=== PATIENT | female | born 1930 | race African-American/Black ===

== ENCOUNTER 2017-05-24 15:09 | Inpatient (IN) | payer MEDICARE, OTHER ==
[~2017-05-24] VITALS: Ht 175.3 cm; Wt 69.9 kg
[2017-05-24 16:54] LABS: CHLORIDE 103 mEq/L (98-107)
[2017-05-24 16:55] LABS: BASOPHILS % 0.7 % (0.0-2.0); EOSINOPHILS % 1.9 % (0.0-5.0); HEMATOCRIT. 35.1 % (36.0-48.0); HEMOGLOBIN. 11.5 g/dL (12.0-16.0); LYMPHOCYTES % 22.2 % (20.0-50.0); MEAN CORPUSCULAR HEMOGLOBIN 28.5 pg (28.0-32.0); MEAN CORPUSCULAR VOLUME 86.7 fL (81.0-99.0); MEAN PLATELET VOLUME 7.7 fl (7.4-10.4); MONOCYTES % 9.1 % (2.0-8.0); NEUTROPHILS % 66.1 % (40.0-76.0); PLATELET 193 x1000/uL (130-400); RED BLOOD CELL COUNT 4.05 mill/uL (4.2-5.4); RED CELL DISTRIBUTION WIDTH 14.2 % (11.6-14.6)
[2017-05-24 16:57] LABS: PARTIAL THROMBOPLASTIN TIME 25.7 sec (23.4-31.0); PROTHROMBIN TIME 10.3 sec (9.4-11.6)
[2017-05-24 16:59] LABS: CARBON DIOXIDE 28 mEq/L (21-32)
[2017-05-24 17:04] LABS: TROPONIN I < 0.02 ng/mL (0.00-0.04)
[2017-05-24] MEDS ORDERED: MECLIZINE 25MG TABLET PO ONE (17:30)
[2017-05-24 22:00] VITALS: BP_SYST 148; BP_SYST 177; BP_DIAS 63; BP_DIAS 87
[2017-05-25] VITALS (13 sets, daily range): BP systolic 104–163; BP diastolic 51–86
[2017-05-25] MEDS ORDERED: ASPI-1159 PO (00:27)
[2017-05-25] MEDS ORDERED: HYDR-523 PO (00:27)
[2017-05-25] MEDS ORDERED: LEVO75TA PO (00:27)
[2017-05-25] MEDS ORDERED: ZET10 PO (00:27)
[2017-05-25] MEDS ORDERED: GABA-290 PO (00:27)
[2017-05-25] MEDS ORDERED: XALAO EACHEYE (00:27)
[2017-05-25] MEDS ORDERED: PROT40 PO (00:27)
[2017-05-25] MEDS ORDERED: ENAL20TA PO (00:27)
[2017-05-25] MEDS ORDERED: CHLO25TA27 PO (00:27)
[2017-05-25] MEDS ORDERED: NIFE60TA64 PO (00:27)
[2017-05-25] MEDS: HYDROCODONE/ACETAMINOPHEN 5/325MG TABLET PO PRN ×2 (01:31→21:32)
[2017-05-25] MEDS: MECLIZINE 25MG TABLET PO SCH ×4 (02:19→21:32)
[2017-05-25] MEDS ORDERED: DEXTROSE 50% WATER 50ML SYRINGE IV PRN (05:45)
[2017-05-25] MEDS: INSULIN LISPRO 100 UNITS/ML SUBCUT SCH ×4 (08:00→21:35)
[2017-05-25] MEDS: BLOOD SUGAR DIAGNOSTIC STRIP TEST SCH ×4 (08:21→21:33)
[2017-05-25] MEDS ORDERED: MEDICATION NOT ON FORMULARY EA (Gabapentin 1 TAB) PO SCH (09:00)
[2017-05-25] MEDS ORDERED: MEDICATION NOT ON FORMULARY EA (Enalapril Maleate 1 TAB) PO SCH (09:00)
[2017-05-25] MEDS: LEVOTHYROXINE SODIUM 75MCG TABLET PO SCH (09:13)
[2017-05-25] MEDS: ASPIRIN 81MG EC TABLET PO SCH (09:13)
[2017-05-25] MEDS: PANTOPRAZOLE 40MG DR TABLET PO SCH ×2 (09:13→18:38)
[2017-05-25] MEDS: NIFEDIPINE XL 60MG TAB PO SCH ×2 (09:13→17:00)
[2017-05-25] MEDS: GABAPENTIN 300MG CAPSULE PO SCH ×3 (09:14→18:38)
[2017-05-25] MEDS: EZETIMIBE 10MG TABLET PO SCH (09:14)
[2017-05-25] MEDS: CHLORTHALIDONE 25MG TABLET PO SCH (09:14)
[2017-05-25] MEDS: ENALAPRIL 10MG TABLET PO SCH (09:14)
[2017-05-25] MEDS ORDERED: LATANOPROST 0.005% OPHTH DROPS 2.5ML EACHEYE SCH (17:00)
[2017-05-26] VITALS (14 sets, daily range): BP systolic 98–150; BP diastolic 50–73
[2017-05-26] MEDS: LEVOTHYROXINE SODIUM 75MCG TABLET PO SCH (06:54)
[2017-05-26] MEDS: PANTOPRAZOLE 40MG DR TABLET PO SCH (06:54)
[2017-05-26] MEDS: MECLIZINE 25MG TABLET PO SCH ×2 (06:54→13:32)
[2017-05-26] MEDS: BLOOD SUGAR DIAGNOSTIC STRIP TEST SCH ×3 (07:28→17:34)
[2017-05-26] MEDS: INSULIN LISPRO 100 UNITS/ML SUBCUT SCH ×3 (07:29→17:34)
[2017-05-26] MEDS: NIFEDIPINE XL 60MG TAB PO SCH ×2 (09:07→17:00)
[2017-05-26] MEDS: CHLORTHALIDONE 25MG TABLET PO SCH (09:07)
[2017-05-26] MEDS: ENALAPRIL 10MG TABLET PO SCH (09:07)
[2017-05-26] MEDS: GABAPENTIN 300MG CAPSULE PO SCH ×2 (09:08→13:32)
[2017-05-26] MEDS: EZETIMIBE 10MG TABLET PO SCH (09:08)
[2017-05-26] MEDS: ASPIRIN 81MG EC TABLET PO SCH (09:08)
[2017-05-26] MEDS ORDERED: GADOBENATE DIMEGLUMINE 529 MG/ML 10ML IV ONE (11:13)
[2017-05-27] MEDS ORDERED: FAMOTIDINE 20MG TABLET PO SCH (09:00)
== END 2017-05-26 17:40 | disposition home or self-care (01) | DRG 149 ==
LOC: ER 16:31 → 5EST 19:07 → ENRESERV 19:59 → EDBEDREQ 20:52
PROVIDERS: ADMIT Internal Medicine; ATTEND Internal Medicine
DX: H81.10 Benign paroxysmal vertigo, unspecified ear (principal); E11.40 Type 2 diabetes mellitus with diabetic neuropathy, unspecified; I10 Essential (primary) hypertension; E03.9 Hypothyroidism, unspecified; E78.00 Pure hypercholesterolemia, unspecified; F41.9 Anxiety disorder, unspecified; H40.9 Unspecified glaucoma; G89.29 Other chronic pain; M54.9 Dorsalgia, unspecified; K21.9 Gastro-esophageal reflux disease without esophagitis; M13.0 Polyarthritis, unspecified; Z85.3 Personal history of malignant neoplasm of breast; Z92.21 Personal history of antineoplastic chemotherapy; Z88.0 Allergy status to penicillin; G93.9 Disorder of brain, unspecified
CPT/HCPCS: 36415; 70450; 70553; 71010; 80053; 82962; 84484; 85025; 85610; 85730; 93005; 97163; 99285; A9577; J1815; J8597

== ENCOUNTER 2017-08-10 10:02 | Emergency (ER) | payer MEDICARE, OTHER ==
[~2017-08-10] VITALS: Ht 175.3 cm; Wt 74.0 kg
[~2017-08-10 10:02] MED LIST: ASPI-1159 PO; CHLO25TA27 PO; ENAL20TA PO; GABA-290 PO; HYDR-523 PO; LEVO75TA PO; NIFE60TA64 PO; PROT40 PO; XALAO EACHEYE; ZET10 PO
[2017-08-10] MEDS ORDERED: NIAC500T2 PO (10:28)
[2017-08-10] MEDS ORDERED: INSU100I7 SQ (10:28)
[2017-08-10] MEDS ORDERED: OMEG100016 PO (10:28)
[2017-08-10] MEDS ORDERED: POTA10TA15 PO (10:28)
[2017-08-10] MEDS ORDERED: MAGN400C PO (10:28)
[2017-08-10 10:49] VITALS: BP 145/70
== END 2017-08-10 11:20 | disposition home or self-care (01) ==
LOC: ER 10:20
DX: R53.1 Weakness (principal); K08.199 Complete loss of teeth due to other specified cause, unspecified class; E11.9 Type 2 diabetes mellitus without complications; I10 Essential (primary) hypertension; Z85.3 Personal history of malignant neoplasm of breast; Z79.4 Long term (current) use of insulin; Z79.82 Long term (current) use of aspirin; Z88.0 Allergy status to penicillin; Z90.12 Acquired absence of left breast and nipple
CPT/HCPCS: 82962; 99282

== ENCOUNTER 2017-12-18 18:31 | Inpatient (IN) | payer MEDICARE, OTHER ==
[~2017-12-18] VITALS: Ht 175.3 cm; Wt 75.5 kg
[2017-12-18 18:10] VITALS: BP 124/46
[~2017-12-18 18:31] MED LIST changes: +ACYC200C PO; +CYCL30DR OP; +GLIM1TAB2 PO; -HYDR-523 PO; +INSU100I7 SQ; +INSU300I SQ; +LETR2.5T6 PO; +MAGN400C PO; +NIAC500T2 PO; +OMEG100016 PO; +PROP10DR2 OP
[2017-12-18 18:52] VITALS: BP 124/46
[2017-12-18] MEDS ORDERED: ACETAMINOPHEN 325MG TABLET PO PRN (19:30)
[2017-12-18] MEDS ORDERED: ONDANSETRON 4MG ODT PO PRN (19:30)
[2017-12-18] MEDS ORDERED: CLONIDINE 0.2MG TABLET PO PRN (19:30)
[2017-12-18] MEDS ORDERED: CLONIDINE 0.1MG TABLET PO PRN (19:30)
[2017-12-18] MEDS ORDERED: IPRATROPIUM/ALBUTEROL 0.5-3(2.5)MG/3ML NEB HHN PRN (19:30)
[2017-12-18] MEDS ORDERED: DOCUSATE SODIUM 100MG CAPSULE PO PRN (19:30)
[2017-12-18] MEDS ORDERED: DIPHENHYDRAMINE 25MG CAPSULE PO PRN (19:30)
[2017-12-18] MEDS ORDERED: IBUPROFEN 200MG TABLET PO PRN (19:45)
[2017-12-18] MEDS ORDERED: GUAIFENESIN 200MG/10ML SUGAR FREE UDC PO PRN (19:45)
[2017-12-18] MEDS ORDERED: TRAMADOL 50MG TABLET PO PRN (19:45)
[2017-12-18] MEDS ORDERED: ZOLPIDEM TARTRATE 5MG TABLET PO PRN (19:45)
[2017-12-18] MEDS ORDERED: NA PHOS,M-B/NA PHOS,DI-BA ENEMA 118ML PR PRN (19:45)
[2017-12-18] MEDS ORDERED: MAGNESIUM/ALUMINUM HYDROXIDE/SIMETHICONE 30ML UDC PO PRN (19:45)
[2017-12-18 20:00] VITALS: BP 132/61
[2017-12-18] MEDS ORDERED: DEXTROSE 50% WATER 50ML SYRINGE IV PRN (20:00)
[2017-12-18] MEDS ORDERED: NITROGLYCERIN 0.4MG TABLET SL SL PRN (20:15)
[2017-12-18] MEDS: BLOOD SUGAR DIAGNOSTIC STRIP TEST SCH (21:00)
[2017-12-18] MEDS ORDERED: CLONIDINE 0.2MG TABLET PO SCH (22:00)
[2017-12-18] MEDS: ATORVASTATIN CALCIUM 20MG TABLET PO SCH (22:29)
[2017-12-18] MEDS: LATANOPROST 0.005% OPHTH DROPS 2.5ML BOTHEYE SCH (22:30)
[2017-12-18] MEDS: METOPROLOL TARTRATE 25MG TABLET PO SCH (22:30)
[2017-12-18] MEDS: LISINOPRIL 20MG TABLET PO SCH (22:30)
[2017-12-18] MEDS: INSULIN LISPRO 100 UNITS/ML SUBCUT SCH (22:32)
[2017-12-18 23:00] VITALS: BP 126/64
[2017-12-19] MEDS: BLOOD SUGAR DIAGNOSTIC STRIP TEST SCH ×4 (06:15→21:47)
[2017-12-19] MEDS: INSULIN LISPRO 100 UNITS/ML SUBCUT SCH ×4 (06:15→22:00)
[2017-12-19] MEDS: LEVOTHYROXINE SODIUM 125MCG TABLET PO SCH (06:16)
[2017-12-19 06:56] LABS: CHLORIDE 93 mEq/L (98-107)
[2017-12-19 07:09] LABS: PREALBUMIN 22.1 mg/dL (20.0-40.0)
[2017-12-19 07:24] LABS: BASOPHILS % 0.8 % (0.0-2.0); HEMATOCRIT. 30.8 % (36.0-48.0); HEMOGLOBIN. 10.6 g/dL (12.0-16.0); LYMPHOCYTES % 18.5 % (20.0-50.0); MEAN CORPUSCULAR HEMOGLOBIN 29.3 pg (28.0-32.0); MEAN CORPUSCULAR VOLUME 85.3 fL (81.0-99.0); MEAN PLATELET VOLUME 6.9 fl (7.4-10.4); MONOCYTES % 12.3 % (2.0-8.0); NEUTROPHILS % 67.4 % (40.0-76.0); PLATELET 217 x1000/uL (130-400); RED BLOOD CELL COUNT 3.61 mill/uL (4.2-5.4); RED CELL DISTRIBUTION WIDTH 14.1 % (11.6-14.6)
[2017-12-19 08:00] VITALS: BP 127/50
[2017-12-19] MEDS: POTASSIUM-SODIUM PHOSPHATE POWDER PACKET PO SCH ×2 (08:39→17:55)
[2017-12-19] MEDS: POLYVINYL ALCOHOL OPHTH DROPS 15ML BOTHEYE SCH ×2 (08:39→17:56)
[2017-12-19] MEDS: LETROZOLE 2.5MG TABLET PO SCH (08:39)
[2017-12-19] MEDS: LISINOPRIL 20MG TABLET PO SCH ×2 (08:40→21:00)
[2017-12-19] MEDS: SODIUM CHLORIDE 1000MG TABLET PO SCH ×2 (08:40→17:55)
[2017-12-19] MEDS: ASPIRIN 325MG EC TABLET PO SCH (08:40)
[2017-12-19] MEDS: METOPROLOL TARTRATE 25MG TABLET PO SCH ×2 (08:41→21:00)
[2017-12-19] MEDS ORDERED: GABAPENTIN 300MG CAPSULE PO SCH (10:00)
[2017-12-19] MEDS: LEVOFLOXACIN 500MG TABLET PO SCH (11:33)
[2017-12-19] MEDS: GABAPENTIN 300MG CAPSULE PO SCH ×2 (15:42→21:48)
[2017-12-19 17:50] VITALS: BP 175/64
[2017-12-19 18:01] LABS: CLARITY URINE CLEAR (CLEAR); COLOR URINE YELLOW (YELLOW); KETONES URINE NEGATIVE (NEGATIVE); LEUKOCYTE ESTERASE URINE 1+ (NEGATIVE); NITRITE URINE NEGATIVE (NEGATIVE); OCCULT BLOOD URINE NEGATIVE (NEGATIVE); PROTEIN URINE NEGATIVE (NEGATIVE); SPECIFIC GRAVITY URINE 1.026 (1.005-1.030); UROBILINOGEN URINE 0.2 E.U./dL (0.2-1.0)
[2017-12-19 20:00] VITALS: BP 128/58
[2017-12-19] MEDS: LATANOPROST 0.005% OPHTH DROPS 2.5ML BOTHEYE SCH (21:47)
[2017-12-19] MEDS: ATORVASTATIN CALCIUM 20MG TABLET PO SCH (21:48)
[2017-12-20] VITALS: BP 120/66
[2017-12-20] MEDS: LEVOTHYROXINE SODIUM 125MCG TABLET PO SCH (06:39)
[2017-12-20] MEDS: BLOOD SUGAR DIAGNOSTIC STRIP TEST SCH ×4 (06:39→21:57)
[2017-12-20] MEDS: GABAPENTIN 300MG CAPSULE PO SCH ×3 (06:39→21:56)
[2017-12-20] MEDS: INSULIN LISPRO 100 UNITS/ML SUBCUT SCH ×4 (06:43→22:04)
[2017-12-20 06:48] LABS: BASOPHILS % 0.8 % (0.0-2.0); EOSINOPHILS % 1.4 % (0.0-5.0); HEMATOCRIT. 28.6 % (36.0-48.0); HEMOGLOBIN. 9.8 g/dL (12.0-16.0); LYMPHOCYTES % 28.4 % (20.0-50.0); MEAN CORPUSCULAR HEMOGLOBIN 29.4 pg (28.0-32.0); MEAN CORPUSCULAR VOLUME 85.9 fL (81.0-99.0); MEAN PLATELET VOLUME 6.8 fl (7.4-10.4); MONOCYTES % 12.7 % (2.0-8.0); NEUTROPHILS % 56.7 % (40.0-76.0); PLATELET 187 x1000/uL (130-400); RED BLOOD CELL COUNT 3.33 mill/uL (4.2-5.4); RED CELL DISTRIBUTION WIDTH 14.4 % (11.6-14.6)
[2017-12-20 08:00] VITALS: BP 155/61
[2017-12-20 08:10] LABS: CHLORIDE 96 mEq/L (98-107)
[2017-12-20] MEDS: ASPIRIN 325MG EC TABLET PO SCH (09:34)
[2017-12-20] MEDS: SODIUM CHLORIDE 1000MG TABLET PO SCH ×2 (09:37→16:26)
[2017-12-20] MEDS: LISINOPRIL 20MG TABLET PO SCH ×2 (09:37→21:56)
[2017-12-20] MEDS: METOPROLOL TARTRATE 25MG TABLET PO SCH ×2 (09:37→21:00)
[2017-12-20] MEDS: POTASSIUM-SODIUM PHOSPHATE POWDER PACKET PO SCH ×2 (09:38→16:26)
[2017-12-20] MEDS: LETROZOLE 2.5MG TABLET PO SCH (09:38)
[2017-12-20] MEDS: POLYVINYL ALCOHOL OPHTH DROPS 15ML BOTHEYE SCH ×2 (09:42→16:26)
[2017-12-20] MEDS ORDERED: LACTULOSE 20G/30ML UDC PO PRN (12:30)
[2017-12-20] MEDS ORDERED: LACTULOSE 20G/30ML UDC PO STA (13:06)
[2017-12-20] MEDS: LACTULOSE 20G/30ML UDC PO SCH ×3 (13:30→21:00)
[2017-12-20] MEDS: DOCUSATE SODIUM 100MG CAPSULE PO SCH (16:26)
[2017-12-20 20:00] VITALS: BP 159/53
[2017-12-20] MEDS: POLYETHYLENE GLYCOL 3350 (17GM) 1 DOSE PACK PO SCH (21:00)
[2017-12-20] MEDS: LATANOPROST 0.005% OPHTH DROPS 2.5ML BOTHEYE SCH (21:56)
[2017-12-20] MEDS: ATORVASTATIN CALCIUM 20MG TABLET PO SCH (21:57)
[2017-12-21] MEDS: GABAPENTIN 300MG CAPSULE PO SCH ×3 (06:31→21:22)
[2017-12-21] MEDS: LEVOTHYROXINE SODIUM 125MCG TABLET PO SCH (06:31)
[2017-12-21] MEDS: BLOOD SUGAR DIAGNOSTIC STRIP TEST SCH ×4 (06:35→21:23)
[2017-12-21] MEDS ORDERED: LEVOTHYROXINE SODIUM 150MCG TABLET PO SCH (07:00)
[2017-12-21 07:39] LABS: BASOPHILS % 0.9 % (0.0-2.0); HEMATOCRIT. 30.8 % (36.0-48.0); HEMOGLOBIN. 10.4 g/dL (12.0-16.0); LYMPHOCYTES % 29.2 % (20.0-50.0); MEAN CORPUSCULAR HEMOGLOBIN 29.3 pg (28.0-32.0); MEAN PLATELET VOLUME 7.3 fl (7.4-10.4); MONOCYTES % 10.2 % (2.0-8.0); NEUTROPHILS % 57.7 % (40.0-76.0); PLATELET 189 x1000/uL (130-400); RED BLOOD CELL COUNT 3.54 mill/uL (4.2-5.4); RED CELL DISTRIBUTION WIDTH 14.5 % (11.6-14.6)
[2017-12-21 07:47] LABS: CHLORIDE 100 mEq/L (98-107)
[2017-12-21] MEDS: INSULIN LISPRO 100 UNITS/ML SUBCUT SCH ×4 (07:52→21:35)
[2017-12-21 07:56] LABS: PHOSPHORUS 3.5 mg/dL (2.5-4.9)
[2017-12-21 08:00] VITALS: BP 152/56
[2017-12-21 08:09] LABS: TOTAL IRON BINDING CAPACITY 293 ug/dL (250-450)
[2017-12-21] MEDS: ACETAMINOPHEN 500MG TABLET PO SCH ×4 (08:20→21:22)
[2017-12-21] MEDS: SODIUM CHLORIDE 1000MG TABLET PO SCH (08:21)
[2017-12-21] MEDS: POTASSIUM-SODIUM PHOSPHATE POWDER PACKET PO SCH ×2 (08:21→16:12)
[2017-12-21] MEDS: LISINOPRIL 20MG TABLET PO SCH ×2 (08:21→21:00)
[2017-12-21] MEDS: METOPROLOL TARTRATE 25MG TABLET PO SCH ×2 (08:21→21:00)
[2017-12-21] MEDS: ASPIRIN 325MG EC TABLET PO SCH (08:22)
[2017-12-21] MEDS: DOCUSATE SODIUM 100MG CAPSULE PO SCH ×2 (08:22→16:12)
[2017-12-21] MEDS: LETROZOLE 2.5MG TABLET PO SCH (08:22)
[2017-12-21] MEDS: POLYVINYL ALCOHOL OPHTH DROPS 15ML BOTHEYE SCH ×2 (08:23→16:12)
[2017-12-21] MEDS: LEVOFLOXACIN 500MG TABLET PO SCH (10:40)
[2017-12-21 12:39] LABS: FOLIC ACID (FOLATE) SERUM 13.2 ng/mL (>5.38)
[2017-12-21 20:00] VITALS: BP 142/38
[2017-12-21] MEDS: LATANOPROST 0.005% OPHTH DROPS 2.5ML BOTHEYE SCH (21:22)
[2017-12-21] MEDS: ATORVASTATIN CALCIUM 20MG TABLET PO SCH ×2 (21:22→21:36)
[2017-12-21] MEDS: POLYETHYLENE GLYCOL 3350 (17GM) 1 DOSE PACK PO SCH (21:41)
[2017-12-22] MEDS: ACETAMINOPHEN 500MG TABLET PO SCH ×4 (02:00→21:29)
[2017-12-22] MEDS: BLOOD SUGAR DIAGNOSTIC STRIP TEST SCH ×4 (06:15→21:34)
[2017-12-22] MEDS: INSULIN LISPRO 100 UNITS/ML SUBCUT SCH ×4 (06:17→21:00)
[2017-12-22] MEDS: LEVOTHYROXINE SODIUM 125MCG TABLET PO SCH (06:30)
[2017-12-22] MEDS: GABAPENTIN 300MG CAPSULE PO SCH ×3 (06:30→21:27)
[2017-12-22 06:42] LABS: HEMATOCRIT. 31.9 % (36.0-48.0); HEMOGLOBIN. 10.9 g/dL (12.0-16.0); MEAN CORPUSCULAR HEMOGLOBIN 29.5 pg (28.0-32.0); MEAN CORPUSCULAR VOLUME 86.3 fL (81.0-99.0); RED BLOOD CELL COUNT 3.69 mill/uL (4.2-5.4); RED CELL DISTRIBUTION WIDTH 14.5 % (11.6-14.6)
[2017-12-22 07:25] LABS: CHLORIDE 102 mEq/L (98-107)
[2017-12-22 07:34] LABS: PHOSPHORUS 3.7 mg/dL (2.5-4.9)
[2017-12-22 08:00] VITALS: BP 169/63
[2017-12-22] MEDS: ASPIRIN 325MG EC TABLET PO SCH (08:50)
[2017-12-22] MEDS: DOCUSATE SODIUM 100MG CAPSULE PO SCH ×2 (08:50→17:54)
[2017-12-22 08:51] LABS: PLATELET ESTIMATE NORMAL
[2017-12-22] MEDS: POTASSIUM-SODIUM PHOSPHATE POWDER PACKET PO SCH ×2 (08:51→17:54)
[2017-12-22] MEDS: POLYVINYL ALCOHOL OPHTH DROPS 15ML BOTHEYE SCH ×2 (08:51→17:55)
[2017-12-22 08:52] LABS: MEAN PLATELET VOLUME 7.9 fl (7.4-10.4); PLATELET 200 x1000/uL (130-400)
[2017-12-22] MEDS: LISINOPRIL 20MG TABLET PO SCH ×2 (08:52→21:00)
[2017-12-22] MEDS: METOPROLOL TARTRATE 25MG TABLET PO SCH ×2 (08:52→21:33)
[2017-12-22] MEDS: LETROZOLE 2.5MG TABLET PO SCH (08:52)
[2017-12-22 20:00] VITALS: BP 134/47
[2017-12-22] MEDS: POLYETHYLENE GLYCOL 3350 (17GM) 1 DOSE PACK PO SCH (21:00)
[2017-12-22] MEDS: ATORVASTATIN CALCIUM 20MG TABLET PO SCH (21:27)
[2017-12-22] MEDS: LATANOPROST 0.005% OPHTH DROPS 2.5ML BOTHEYE SCH (21:29)
[2017-12-23] MEDS: ACETAMINOPHEN 500MG TABLET PO SCH ×4 (03:47→20:15)
[2017-12-23] MEDS: GABAPENTIN 300MG CAPSULE PO SCH ×3 (06:32→22:23)
[2017-12-23] MEDS: LEVOTHYROXINE SODIUM 125MCG TABLET PO SCH (06:32)
[2017-12-23] MEDS: BLOOD SUGAR DIAGNOSTIC STRIP TEST SCH ×4 (06:32→20:49)
[2017-12-23] MEDS: INSULIN LISPRO 100 UNITS/ML SUBCUT SCH ×4 (06:35→20:51)
[2017-12-23] MEDS: LISINOPRIL 20MG TABLET PO SCH ×2 (08:08→20:37)
[2017-12-23] MEDS: DOCUSATE SODIUM 100MG CAPSULE PO SCH ×2 (08:08→16:50)
[2017-12-23] MEDS: ASPIRIN 325MG EC TABLET PO SCH (08:09)
[2017-12-23] MEDS: METOPROLOL TARTRATE 25MG TABLET PO SCH ×2 (08:09→20:36)
[2017-12-23] MEDS: LETROZOLE 2.5MG TABLET PO SCH (08:10)
[2017-12-23] MEDS: POTASSIUM-SODIUM PHOSPHATE POWDER PACKET PO SCH ×2 (08:10→16:50)
[2017-12-23] MEDS: POLYVINYL ALCOHOL OPHTH DROPS 15ML BOTHEYE SCH ×2 (08:11→16:50)
[2017-12-23 08:12] VITALS: BP 153/54
[2017-12-23] MEDS: LEVOFLOXACIN 500MG TABLET PO SCH (11:50)
[2017-12-23 20:00] VITALS: BP 123/56
[2017-12-23] MEDS: ATORVASTATIN CALCIUM 20MG TABLET PO SCH (20:14)
[2017-12-23] MEDS: LATANOPROST 0.005% OPHTH DROPS 2.5ML BOTHEYE SCH (20:14)
[2017-12-23] MEDS: POLYETHYLENE GLYCOL 3350 (17GM) 1 DOSE PACK PO SCH (20:14)
[2017-12-23] MEDS ORDERED: TRAMADOL 50MG TABLET PO PRN (20:30)
[2017-12-23] MEDS ORDERED: ZOLPIDEM TARTRATE 5MG TABLET PO PRN (20:30)
[2017-12-24] MEDS: ACETAMINOPHEN 500MG TABLET PO SCH ×2 (02:00→08:49)
[2017-12-24] MEDS: BLOOD SUGAR DIAGNOSTIC STRIP TEST SCH ×4 (05:35→21:43)
[2017-12-24] MEDS: INSULIN LISPRO 100 UNITS/ML SUBCUT SCH ×4 (05:36→21:53)
[2017-12-24] MEDS: GABAPENTIN 300MG CAPSULE PO SCH ×3 (05:37→16:51)
[2017-12-24] MEDS: LEVOTHYROXINE SODIUM 125MCG TABLET PO SCH (05:37)
[2017-12-24 08:00] VITALS: BP 152/58
[2017-12-24] MEDS: ASPIRIN 325MG EC TABLET PO SCH (08:49)
[2017-12-24] MEDS: DOCUSATE SODIUM 100MG CAPSULE PO SCH ×2 (08:49→16:51)
[2017-12-24] MEDS: LISINOPRIL 20MG TABLET PO SCH ×2 (08:49→21:43)
[2017-12-24] MEDS: POTASSIUM-SODIUM PHOSPHATE POWDER PACKET PO SCH ×2 (08:50→16:52)
[2017-12-24] MEDS: POLYVINYL ALCOHOL OPHTH DROPS 15ML BOTHEYE SCH ×2 (08:50→16:51)
[2017-12-24] MEDS: LETROZOLE 2.5MG TABLET PO SCH (10:53)
[2017-12-24] MEDS: METOPROLOL TARTRATE 25MG TABLET PO SCH ×2 (10:54→21:00)
[2017-12-24] MEDS ORDERED: ACETAMINOPHEN 500MG TABLET PO PRN (14:00)
[2017-12-24 18:05] VITALS: BP 125/43
[2017-12-24] MEDS: TRAMADOL 50MG TABLET PO PRN (18:14)
[2017-12-24 19:12] LABS: 25-HYDROXY VITAMIN D3 17 ng/mL (.)
[2017-12-24 20:00] VITALS: BP 160/55
[2017-12-24] MEDS ORDERED: GABAPENTIN 100MG CAPSULE PO SCH (21:00)
[2017-12-24] MEDS: ATORVASTATIN CALCIUM 20MG TABLET PO SCH (21:42)
[2017-12-24] MEDS: POLYETHYLENE GLYCOL 3350 (17GM) 1 DOSE PACK PO SCH (21:49)
[2017-12-24] MEDS: LATANOPROST 0.005% OPHTH DROPS 2.5ML BOTHEYE SCH (21:54)
[2017-12-25] MEDS: BLOOD SUGAR DIAGNOSTIC STRIP TEST SCH ×4 (06:14→21:00)
[2017-12-25] MEDS: LEVOTHYROXINE SODIUM 125MCG TABLET PO SCH (06:15)
[2017-12-25] MEDS: INSULIN LISPRO 100 UNITS/ML SUBCUT SCH ×4 (06:18→22:06)
[2017-12-25 06:52] LABS: BASOPHILS % 0.9 % (0.0-2.0); EOSINOPHILS % 1.8 % (0.0-5.0); HEMATOCRIT. 29.5 % (36.0-48.0); HEMOGLOBIN. 9.9 g/dL (12.0-16.0); LYMPHOCYTES % 33.7 % (20.0-50.0); MEAN CORPUSCULAR HEMOGLOBIN 29.2 pg (28.0-32.0); MEAN CORPUSCULAR VOLUME 86.8 fL (81.0-99.0); MEAN PLATELET VOLUME 6.8 fl (7.4-10.4); MONOCYTES % 10.9 % (2.0-8.0); NEUTROPHILS % 52.7 % (40.0-76.0); PLATELET 210 x1000/uL (130-400); RED CELL DISTRIBUTION WIDTH 14.9 % (11.6-14.6)
[2017-12-25 07:28] LABS: CHLORIDE 102 mEq/L (98-107)
[2017-12-25 08:11] VITALS: BP 162/71
[2017-12-25] MEDS: POLYVINYL ALCOHOL OPHTH DROPS 15ML BOTHEYE SCH ×2 (09:03→16:45)
[2017-12-25] MEDS: POTASSIUM-SODIUM PHOSPHATE POWDER PACKET PO SCH ×2 (09:04→16:44)
[2017-12-25] MEDS: LISINOPRIL 20MG TABLET PO SCH ×2 (09:05→21:00)
[2017-12-25] MEDS: METOPROLOL TARTRATE 25MG TABLET PO SCH ×2 (09:05→21:00)
[2017-12-25] MEDS: DOCUSATE SODIUM 100MG CAPSULE PO SCH ×2 (09:05→16:45)
[2017-12-25] MEDS: ASPIRIN 325MG EC TABLET PO SCH (09:05)
[2017-12-25] MEDS: GABAPENTIN 300MG CAPSULE PO SCH ×2 (09:05→13:19)
[2017-12-25] MEDS: LETROZOLE 2.5MG TABLET PO SCH (09:07)
[2017-12-25] MEDS: LEVOFLOXACIN 500MG TABLET PO SCH (10:43)
[2017-12-25] MEDS ORDERED: PREGABALIN 50 MG CAPSULE PO SCH (11:45)
[2017-12-25] MEDS ORDERED: ERGOCALCIFEROL 50000UNITS CAPSULE PO SCH (16:00)
[2017-12-25] MEDS: PREGABALIN 50 MG CAPSULE PO SCH ×2 (16:44→22:00)
[2017-12-25 20:00] VITALS: BP 145/56
[2017-12-25] MEDS: ATORVASTATIN CALCIUM 20MG TABLET PO SCH (22:00)
[2017-12-25] MEDS: POLYETHYLENE GLYCOL 3350 (17GM) 1 DOSE PACK PO SCH (22:00)
[2017-12-25] MEDS: LATANOPROST 0.005% OPHTH DROPS 2.5ML BOTHEYE SCH (22:01)
[2017-12-25 23:21] VITALS: BP 145/56
[2017-12-26] MEDS: BLOOD SUGAR DIAGNOSTIC STRIP TEST SCH ×4 (06:15→21:00)
[2017-12-26] MEDS: LEVOTHYROXINE SODIUM 125MCG TABLET PO SCH (06:16)
[2017-12-26] MEDS: INSULIN LISPRO 100 UNITS/ML SUBCUT SCH ×4 (06:16→21:00)
[2017-12-26 08:00] VITALS: BP 174/66
[2017-12-26] MEDS: PREGABALIN 50 MG CAPSULE PO SCH ×3 (08:41→18:36)
[2017-12-26] MEDS: POLYVINYL ALCOHOL OPHTH DROPS 15ML BOTHEYE SCH ×2 (08:41→18:36)
[2017-12-26] MEDS: LETROZOLE 2.5MG TABLET PO SCH (08:42)
[2017-12-26] MEDS: DOCUSATE SODIUM 100MG CAPSULE PO SCH ×2 (08:43→18:36)
[2017-12-26] MEDS: ASPIRIN 325MG EC TABLET PO SCH (08:43)
[2017-12-26] MEDS: METOPROLOL TARTRATE 25MG TABLET PO SCH ×2 (08:43→21:00)
[2017-12-26] MEDS: LISINOPRIL 20MG TABLET PO SCH ×2 (08:44→22:10)
[2017-12-26] MEDS: POTASSIUM-SODIUM PHOSPHATE POWDER PACKET PO SCH ×2 (08:44→18:36)
[2017-12-26 11:00] VITALS: BP 136/55
[2017-12-26] MEDS: TRAMADOL 50MG TABLET PO PRN (15:31)
[2017-12-26 20:00] VITALS: BP 145/60
[2017-12-26] MEDS: LATANOPROST 0.005% OPHTH DROPS 2.5ML BOTHEYE SCH (22:09)
[2017-12-26] MEDS: ATORVASTATIN CALCIUM 20MG TABLET PO SCH (22:10)
[2017-12-26] MEDS: POLYETHYLENE GLYCOL 3350 (17GM) 1 DOSE PACK PO SCH (22:10)
[2017-12-27] MEDS ORDERED: PREGABALIN 50 MG CAPSULE PO SCH (03:15)
[2017-12-27] MEDS: INSULIN LISPRO 100 UNITS/ML SUBCUT SCH ×4 (06:18→21:11)
[2017-12-27] MEDS: BLOOD SUGAR DIAGNOSTIC STRIP TEST SCH ×4 (06:18→21:04)
[2017-12-27] MEDS: PREGABALIN 50 MG CAPSULE PO SCH ×2 (06:19→13:33)
[2017-12-27] MEDS: LEVOTHYROXINE SODIUM 125MCG TABLET PO SCH (06:19)
[2017-12-27 06:38] LABS: BASOPHILS % 0.9 % (0.0-2.0); EOSINOPHILS % 1.5 % (0.0-5.0); HEMATOCRIT. 28.6 % (36.0-48.0); HEMOGLOBIN. 9.6 g/dL (12.0-16.0); LYMPHOCYTES % 29.1 % (20.0-50.0); MEAN CORPUSCULAR HEMOGLOBIN 29.5 pg (28.0-32.0); MEAN CORPUSCULAR VOLUME 87.8 fL (81.0-99.0); MEAN PLATELET VOLUME 6.9 fl (7.4-10.4); MONOCYTES % 10.2 % (2.0-8.0); NEUTROPHILS % 58.3 % (40.0-76.0); PLATELET 214 x1000/uL (130-400); RED BLOOD CELL COUNT 3.26 mill/uL (4.2-5.4); RED CELL DISTRIBUTION WIDTH 15.4 % (11.6-14.6)
[2017-12-27 07:13] LABS: CHLORIDE 105 mEq/L (98-107)
[2017-12-27 07:27] LABS: PHOSPHORUS 3.4 mg/dL (2.5-4.9)
[2017-12-27 08:00] VITALS: BP 161/59
[2017-12-27] MEDS: ASPIRIN 325MG EC TABLET PO SCH (08:49)
[2017-12-27] MEDS: LETROZOLE 2.5MG TABLET PO SCH (08:49)
[2017-12-27] MEDS: LISINOPRIL 20MG TABLET PO SCH ×2 (08:50→21:05)
[2017-12-27] MEDS: POTASSIUM-SODIUM PHOSPHATE POWDER PACKET PO SCH ×2 (08:51→17:53)
[2017-12-27] MEDS: DOCUSATE SODIUM 100MG CAPSULE PO SCH ×2 (08:51→17:53)
[2017-12-27] MEDS: POLYVINYL ALCOHOL OPHTH DROPS 15ML BOTHEYE SCH ×2 (08:51→17:53)
[2017-12-27] MEDS: METOPROLOL TARTRATE 25MG TABLET PO SCH ×2 (08:51→21:06)
[2017-12-27 10:50] VITALS: BP 139/57
[2017-12-27] MEDS ORDERED: LIDOCAINE HCL 4% CREAM 76GM TUBE TP PRN (16:30)
[2017-12-27 20:00] VITALS: BP 145/46
[2017-12-27] MEDS: POLYETHYLENE GLYCOL 3350 (17GM) 1 DOSE PACK PO SCH (20:52)
[2017-12-27] MEDS: LATANOPROST 0.005% OPHTH DROPS 2.5ML BOTHEYE SCH (21:04)
[2017-12-27] MEDS: PREGABALIN 75MG CAPSULE PO SCH (21:04)
[2017-12-27] MEDS: ATORVASTATIN CALCIUM 20MG TABLET PO SCH (21:04)
[2017-12-28] MEDS: PREGABALIN 75MG CAPSULE PO SCH ×3 (05:48→21:23)
[2017-12-28] MEDS: LEVOTHYROXINE SODIUM 125MCG TABLET PO SCH (05:48)
[2017-12-28] MEDS: BLOOD SUGAR DIAGNOSTIC STRIP TEST SCH ×4 (05:52→20:44)
[2017-12-28 08:00] VITALS: BP 120/56
[2017-12-28] MEDS: INSULIN LISPRO 100 UNITS/ML SUBCUT SCH ×4 (09:00→20:44)
[2017-12-28] MEDS: DOCUSATE SODIUM 100MG CAPSULE PO SCH ×2 (09:01→17:00)
[2017-12-28] MEDS: LISINOPRIL 20MG TABLET PO SCH ×2 (09:02→20:24)
[2017-12-28] MEDS: METOPROLOL TARTRATE 25MG TABLET PO SCH ×2 (09:02→20:24)
[2017-12-28] MEDS: ASPIRIN 325MG EC TABLET PO SCH (09:02)
[2017-12-28] MEDS: LETROZOLE 2.5MG TABLET PO SCH (09:03)
[2017-12-28] MEDS: POLYVINYL ALCOHOL OPHTH DROPS 15ML BOTHEYE SCH ×2 (09:04→17:32)
[2017-12-28] MEDS: POTASSIUM-SODIUM PHOSPHATE POWDER PACKET PO SCH ×2 (09:04→17:32)
[2017-12-28 10:50] VITALS: BP 147/61
[2017-12-28 20:00] VITALS: BP 140/42
[2017-12-28] MEDS: LATANOPROST 0.005% OPHTH DROPS 2.5ML BOTHEYE SCH (20:23)
[2017-12-28] MEDS: ATORVASTATIN CALCIUM 20MG TABLET PO SCH (20:24)
[2017-12-28] MEDS: POLYETHYLENE GLYCOL 3350 (17GM) 1 DOSE PACK PO SCH (20:25)
[2017-12-29] MEDS: PREGABALIN 75MG CAPSULE PO SCH ×2 (06:18→13:59)
[2017-12-29] MEDS: LEVOTHYROXINE SODIUM 125MCG TABLET PO SCH (06:18)
[2017-12-29] MEDS: BLOOD SUGAR DIAGNOSTIC STRIP TEST SCH ×2 (06:19→11:35)
[2017-12-29] MEDS: INSULIN LISPRO 100 UNITS/ML SUBCUT SCH ×2 (06:19→14:04)
[2017-12-29 08:13] VITALS: BP 169/55
[2017-12-29] MEDS: POLYVINYL ALCOHOL OPHTH DROPS 15ML BOTHEYE SCH (08:17)
[2017-12-29] MEDS: LETROZOLE 2.5MG TABLET PO SCH (08:18)
[2017-12-29] MEDS: ASPIRIN 325MG EC TABLET PO SCH (08:18)
[2017-12-29] MEDS: LISINOPRIL 20MG TABLET PO SCH (08:19)
[2017-12-29] MEDS: POTASSIUM-SODIUM PHOSPHATE POWDER PACKET PO SCH (08:19)
[2017-12-29] MEDS: METOPROLOL TARTRATE 25MG TABLET PO SCH (08:20)
[2017-12-29] MEDS: DOCUSATE SODIUM 100MG CAPSULE PO SCH (08:21)
[2017-12-29 13:31] VITALS: BP 169/55
== END 2017-12-29 14:35 | disposition home health service (06) | DRG 71 ==
PROVIDERS: ADMIT Physical Medicine & Rehabilitation Spinal Cord Injury Medicine; ATTEND Internal Medicine
DX: G93.40 Encephalopathy, unspecified (principal); B02.29 Other postherpetic nervous system involvement; E44.0 Moderate protein-calorie malnutrition; E11.42 Type 2 diabetes mellitus with diabetic polyneuropathy; E87.1 Hypo-osmolality and hyponatremia; B02.21 Postherpetic geniculate ganglionitis; M62.82 Rhabdomyolysis; N39.0 Urinary tract infection, site not specified; I10 Essential (primary) hypertension; H40.9 Unspecified glaucoma; G89.29 Other chronic pain; M54.5 Low back pain; E03.9 Hypothyroidism, unspecified; M54.16 Radiculopathy, lumbar region; R53.81 Other malaise; D63.8 Anemia in other chronic diseases classified elsewhere; M19.90 Unspecified osteoarthritis, unspecified site; R26.9 Unspecified abnormalities of gait and mobility; E55.9 Vitamin D deficiency, unspecified; D72.819 Decreased white blood cell count, unspecified; Z85.3 Personal history of malignant neoplasm of breast; Z88.0 Allergy status to penicillin; Z86.19 Personal history of other infectious and parasitic diseases; Z92.21 Personal history of antineoplastic chemotherapy; Z68.24 Body mass index [BMI] 24.0-24.9, adult; Z84.1 Family history of disorders of kidney and ureter; Z80.9 Family history of malignant neoplasm, unspecified; Z82.49 Family history of ischemic heart disease and other diseases of the circulatory system
CPT/HCPCS: 36415; 80048; 80053; 81003; 82270; 82306; 82607; 82728; 82746; 82962; 83540; 83550; 83735; 83935; 84100; 84134; 84443; 84630; 85025; 87086; 92523; 93970; 97110; 97116; 97162; 97166; 97530; 97535; G0515; J1815

== ENCOUNTER → 2018-01-30 | Outpatient (CLI) | payer MEDICARE, OTHER ==
[~2018-01-30] MED LIST changes: -ACYC200C PO; -ASPI-1159 PO; -CHLO25TA27 PO; -CYCL30DR OP; -ENAL20TA PO; -GABA-290 PO; -MAGN400C PO; -NIAC500T2 PO; -NIFE60TA64 PO; -OMEG100016 PO; -PROP10DR2 OP; -PROT40 PO; -XALAO EACHEYE; -ZET10 PO
== END | disposition home or self-care (01) ==
LOC: RAD 11:05
PROVIDERS: ATTEND Radiology Radiation Oncology
DX: R92.8 Other abnormal and inconclusive findings on diagnostic imaging of breast (principal)
CPT/HCPCS: 77065